=== PATIENT | female | born 1975 | race African-American/Black ===

== ENCOUNTER 2017-07-20 22:12 | Emergency (ER) | payer OTHER ==
[2017-07-20 22:30] VITALS: BP 140/84; PULSE 93; TEMP 98.6; BMI 30.2
--- NOTE | 2017-07-20 22:50 | PDOC ---
History of Present Illness - General Chief Complaint: Vaginal Sxs Stated Complaint: ABD PAIN Time Seen by Provider: 07/20/17 22:34 - History of Present Illness Initial Comments: 07/20/17 22:49 CHIEF COMPLAINT: vaginal irritation and discharge HISTORY OF PRESENT ILLNESS: 42 yo F presents to ED with vaginal irritation and discharge. Patient reports 2 days of vaginal discomfort and states that it is "both pain and itching." She states that she has had a foul odor during her menses and it's worse today. Patient states she is sexual active with one person and last had a negative ct/gc test 6 months ago. Denies any hx of ct/ gc. PAST MEDICAL HISTORY: Denies past medical history FAMILY HISTORY: Denies SOCIAL HISTORY: Denies tobacco, alcohol, illicit drug use. SURGICAL HISTORY: Denies ALLERGIES: PCN REVIEW OF SYSTEMS General/Constitutional: Denies fever or chills. Denies weakness, weight change. HEENT: Denies change in vision. Denies ear pain or discharge. Denies sore throat. Cardiovascular: Denies chest pain or shortness of breath. Respiratory: Denies cough, wheezing, or hemoptysis. Gastrointestinal: Denies nausea, vomiting, diarrhea or constipation. Denies rectal bleeding. Genitourinary: Vaginal itching and pain "inside" with foul odor during menses. Denies dysuria, frequency, or change in urination. Musculoskeletal: Denies joint or muscle swelling or pain. Denies neck or back pain. Skin and breasts: Denies rash or easy bruising. Neurologic: Denies headache, vertigo, loss of consciousness, or loss of sensation. PHYSICAL EXAM General Appearance: Well-appearing, appropriately dressed. No apparent distress. HEENT: EOMI, PERRLA. No conjunctival pallor. No photophobia, scleral icterus. Respiratory/Chest: Lungs CTAB. Cardiovascular: RRR. S1, S2. Gastrointestinal/Abdominal: Normal bowel sounds. Abdomen soft, non-distended. No tenderness or rebound tenderness. No organomegaly, pulsatile mass, guarding , hernia, hepatomegaly, splenomegaly. Pelvic: External genitalia normal without lesions. Vaginal vault with thin martinez discharge mixed with menstrual blood. Foul smelling. Cervix is long and closed. No cervical motion tenderness. Uterus is nontender and normal in size. Adnexa are nontender and without masses. Musculoskeletal/Extremities: Normal inspection. FROM of all extremities, normal capillary refill. Pelvis Stable. No CVA tenderness. No tenderness to extremities, pedal edema, swelling, erythema or deformity. Integumentary: Appropriate color, dry, warm. 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 Fully oriented, alert. Appropriate mood/affect. Motor strength 5/5. No appreciable EOM palsy, facial droop or sensory deficit. 07/20/17 23:10 07/20/17 23:44 07/20/17 23:47 Past History - Past Medical History Allergies/Adverse Reactions: Allergies Allergy/AdvReac Type Severity Reaction Status Date / Time Penicillins Allergy Hives Verified 07/20/17 22:38 Home Medications: Ambulatory Orders Metronidazole [Flagyl -] 500 mg PO DAILY #14 tablet 07/20/17 Nitrofurantoin Monohyd/M-Cryst [Macrobid -] 100 mg PO BID #14 capsule 07/20/17 - Reproductive History Is Patient Now?: No - Psycho/Social/Smoking Cessation Hx Anxiety: No Suicidal Ideation: No Smoking History: Former smoker Have you smoked in the past 12 months: No Information on smoking cessation initiated: No Hx Alcohol Use: No Drug/Substance Use Hx: No Substance Use Type: None *Physical Exam - Vital Signs Last Vital Signs Temp Pulse Resp BP Pulse Ox 98.6 F 93 H 18 140/84 99 07/20/17 22:27 07/20/17 22:27 07/20/17 22:27 07/20/17 22:27 07/20/17 22:27 Medical Decision Making - Medical Decision Making 07/20/17 23:44 42 yo F presents to ED with vaginal irritation and discharge. Patient reports 2 days of vaginal discomfort and states that it is "both pain and itching." -UA, UCx -CT/GC Clinical presentation consistent with bacterial vaginosis. Flagyl 500 mg bid x 7 days, rx sent to pharm 07/20/17 23:50 UA positive for UTI, WBC 162. Macrobid sent to pharm. *DC/Admit/Observation/Transfer Diagnosis at time of Disposition: Bacterial vaginosis UTI (urinary tract infection) Qualifiers: Urinary tract infection type: acute cystitis Hematuria presence: without hematuria Qualified Code(s): N30.00 - Acute cystitis without hematuria - Discharge Dispostion Disposition: HOME Condition at time of disposition: Stable Admit: No - Prescriptions Prescriptions: Metronidazole [Flagyl -] 500 mg PO DAILY #14 tablet Nitrofurantoin Monohyd/M-Cryst [Macrobid -] 100 mg PO BID #14 capsule - Referrals Referrals: Isael Lockett MD [Staff Physician] - - Patient Instructions Printed Discharge Instructions: DI for Urinary Tract Infection (UTI), DI for Bacterial Vaginosis Additional Instructions: Please take medications as prescribed. As discussed, call us in 2-3 days to check on the results of your chlamydia and gonorrhea culture. If you experience any fever, chills, nausea, vomiting, diarrhea, back pain, worsening vaginal pain, or any new or worsening symptoms, please return to the ER.
[2017-07-20 23:15] LABS: URINE APPEARANCE SLCLOUDY; URINE BILIRUBIN NEGATIVE (NEGATIVE); URINE BLOOD 2+ (NEGATIVE); URINE COLOR YELLOW; URINE GLUCOSE (UA) NEGATIVE (NEGATIVE); URINE KETONE NEGATIVE (NEGATIVE); URINE NITRITE NEGATIVE (NEGATIVE); URINE PROTEIN NEGATIVE (NEGATIVE); URINE UROBILINOGEN NEGATIVE mg/dL (0.2-1.0)
[2017-07-20 23:30] LABS: URINE BACTERIA RARE /hpf (NONE SEEN); URINE HYALINE CAST 1 /lpf; URINE LEUK ESTERASE 3+ (NEGATIVE); URINE MUCUS RARE; URINE RBC 52 /hpf (0-3); URINE WBC 162 /hpf (3-5)
== END 2017-07-21 00:04 | disposition home or self-care (01) ==
LOC: JER 22:12
DX: N76.0 Acute vaginitis (principal); B96.89 Other specified bacterial agents as the cause of diseases classified elsewhere; N30.00 Acute cystitis without hematuria
CPT/HCPCS: 36415; 81003; 81015; 84703; 87086; 87491; 87591; 99282-25

== ENCOUNTER 2018-11-24 12:35 | Emergency (ER) | payer BC, OTHER ==
[2018-11-24 12:40] VITALS: BP 123/79; PULSE 91; TEMP 98.5; BMI 32.5
--- NOTE | 2018-11-24 14:41 | PDOC ---
History of Present Illness - General Chief Complaint: Nausea/Vomiting Stated Complaint: VOMITING Time Seen by Provider: 11/24/18 14:41 History Source: Patient Exam Limitations: No Limitations Past History - Past Medical History Allergies/Adverse Reactions: Allergies Allergy/AdvReac Type Severity Reaction Status Date / Time Penicillins Allergy Hives Verified 07/20/17 22:38 Home Medications: Ambulatory Orders Nitrofurantoin Monohyd/M-Cryst [Macrobid -] 100 mg PO BID #14 capsule 07/20/17 metroNIDAZOLE [Flagyl -] 500 mg PO DAILY #14 tablet 07/20/17 COPD: No - Immunization History Immunization Up to Date: No - Suicide/Smoking/Psychosocial Hx Smoking History: Never smoked Have you smoked in the past 12 months: No Information on smoking cessation initiated: No Hx Alcohol Use: No Drug/Substance Use Hx: No Substance Use Type: None *Physical Exam - Vital Signs Last Vital Signs Temp Pulse Resp BP Pulse Ox 98.5 F 91 H 18 123/79 98 11/24/18 12:38 11/24/18 12:38 11/24/18 12:38 11/24/18 12:38 11/24/18 12:38 Moderate Sedation - Procedure Monitoring Vital Signs: Procedure Monitoring Vital Signs Temperature 98.5 F 11/24/18 12:38 Pulse Rate 91 H 11/24/18 12:38 Respiratory Rate 18 11/24/18 12:38 Blood Pressure 123/79 11/24/18 12:38 O2 Sat by Pulse Oximetry (%) 98 11/24/18 12:38 *DC/Admit/Observation/Transfer - Discharge Dispostion Condition at time of disposition: Stable - Referrals - Patient Instructions - Post Discharge Activity
== END 2018-11-24 15:21 | disposition left against medical advice (07) ==
LOC: JER 12:35
DX: Z53.21 Procedure and treatment not carried out due to patient leaving prior to being seen by health care provider (principal)
CPT/HCPCS: 99281-25

== ENCOUNTER 2019-01-01 09:09 | Emergency (ER) | payer BC ==
[2019-01-01 09:17] VITALS: BP 127/82; PULSE 95; TEMP 98.5; BMI 32.5
[2019-01-01] MEDS ORDERED: IBUPROFEN 600 MG TABLET (FP) PO ONE ×2 (09:45→09:52)
--- NOTE | 2019-01-01 09:54 | PDOC ---
History of Present Illness - General Chief Complaint: Pain Stated Complaint: BACK PAIN / RADIATES LEG Time Seen by Provider: 01/01/19 09:35 History Source: Patient Exam Limitations: No Limitations - History of Present Illness Initial Comments: 01/01/19 09:46 43 year old female with no significant medical or surgical history present with pain in entire back x 2 days. Patient reports testing positive for the flu 1 week ago, treated with tamiflu but did not complete the treatment due to feeling nauseous and vomiting after taking the pill. States she continues with productive coughing bringing up greenish phlegm. States coughing causes her to have soreness in her back. 01/01/19 09:57 Occurred: reports: other (2 days ) Pain Location: reports: back Method of Injury: Yes: other (coughing ) Modifying Factors: improves with: cold therapy, rest Loss of Consciousness: no loss of consciousness Associated Symptoms (Fall): denies symptoms Past History - Travel Traveled outside of the country in the last 30 days: No Close contact w/someone who was outside of country & ill: No - Past Medical History Allergies/Adverse Reactions: Allergies Allergy/AdvReac Type Severity Reaction Status Date / Time Penicillins Allergy Hives Verified 01/01/19 09:14 Home Medications: Ambulatory Orders Azithromycin [Zithromax 250mg Tablets -] 250 mg PO UTDICT #6 tab 01/01/19 COPD: No - Immunization History Immunization Up to Date: No - Suicide/Smoking/Psychosocial Hx Smoking History: Former smoker Have you smoked in the past 12 months: Yes Information on smoking cessation initiated: No Hx Alcohol Use: No Drug/Substance Use Hx: No Substance Use Type: None Trauma Specific PMHX - Complaint Specific PMHX Arthritis: No Back Injury: No Neck Injury: No Hx Sacro Iliac Joint Dysfunction: No Review of Systems - Review of Systems Able to Perform ROS?: Yes Is the patient limited Wolof proficient: No Constitutional: Yes: Chills HEENTM: Yes: Nose Congestion. No: Dental Problems Respiratory: Yes: Cough. No: Shortness of Breath, Wheezing, Productive cough Cardiac (ROS): No: Chest Pain, Lightheadedness, Palpitations, Syncope ABD/GI: No: Nausea, Poor Appetite, Vomiting, Indigestion : No: Burning, Dysuria, Incontinence Musculoskeletal: Yes: Back Pain Integumentary: No: Bruising, Change in Color, Erythema Neurological: No: Headache, Numbness, Tremors *Physical Exam - Vital Signs Last Vital Signs Temp Pulse Resp BP Pulse Ox 98.5 F 95 H 18 127/82 97 01/01/19 09:14 01/01/19 09:14 01/01/19 09:14 01/01/19 09:14 01/01/19 09:14 - Physical Exam General Appearance: Yes: Nourished, Appropriately Dressed HEENT: positive: Pharynx Normal Neck: negative: Lymphadenopathy (R), Lymphadenopathy (L) Respiratory/Chest: positive: Lungs Clear, Normal Breath Sounds Cardiovascular: positive: Regular Rhythm, Regular Rate Musculoskeletal: negative: CVA Tenderness (R), CVA Tenderness (L), Vertebral Tenderness Extremity: positive: Normal Capillary Refill 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, Fully Oriented Moderate Sedation - Procedure Monitoring Vital Signs: Procedure Monitoring Vital Signs Temperature 98.5 F 01/01/19 09:14 Pulse Rate 95 H 01/01/19 09:14 Respiratory Rate 18 01/01/19 09:14 Blood Pressure 127/82 01/01/19 09:14 O2 Sat by Pulse Oximetry (%) 97 01/01/19 09:14 Medical Decision Making - Medical Decision Making 01/01/19 13:59 43 year old female with no significant medical or surgical history present with pain in entire back x 2 days Plan : treat with z pack since she did not take complete treatment one week ago rx: zpack *DC/Admit/Observation/Transfer Diagnosis at time of Disposition: Acute back pain Qualifiers: Back pain location: thoracic back pain Back pain laterality: bilateral Qualified Code(s): M54.6 - Pain in thoracic spine - Discharge Dispostion Disposition: HOME Condition at time of disposition: Good Decision to Admit order: No - Prescriptions Prescriptions: Azithromycin [Zithromax 250mg Tablets -] 250 mg PO UTDICT #6 tab - Referrals - Patient Instructions Printed Discharge Instructions: Back Pain (Alternative Therapy) - Post Discharge Activity Forms/Work/School Notes: Back to Work
== END 2019-01-01 10:11 | disposition home or self-care (01) ==
LOC: JERFT 09:09
DX: M54.6 Pain in thoracic spine (principal)
CPT/HCPCS: 99281-25